=== PATIENT | male | born 1975 | race Caucasian/White ===

== ENCOUNTER 2021-11-09 18:31 | Emergency (ER) | payer MEDICAID, SELFPAY ==
[2021-11-09 18:42] VITALS: BP 149/106; PULSE 69; RESP 16; TEMP 36.9; O2SAT 98
--- NOTE | 2021-11-09 18:58 | XRR_ITS ---
PROCEDURE INFORMATION: Exam: XR Chest Exam date and time: 11/09/2021 9:13 PM Age: 46 years old Clinical indication: Pain; Angina pectoris; Additional info: Chest pain TECHNIQUE: Imaging protocol: Radiologic exam of the chest. Views: 1 view. COMPARISON: No relevant prior studies available. FINDINGS: Lungs: No consolidation. Pleural spaces: Unremarkable. No pleural effusion. No pneumothorax. Heart/Mediastinum: No cardiomegaly. Bones/joints: No acute findings. XR/XR chest 1V portable [id number] IMPRESSION: No acute findings.
[2021-11-09 21:37] LABS: Basophils # 0.1 10^3/uL (0.0-0.1); Eosinophils # 0.1 10^3/uL (0.0-0.8); Eosinophils % 0.8 %; Hematocrit 43.3 % (42.0-52.0); Hemoglobin 14.9 g/dL (11.7-16.6); Lymphocytes # 2.5 10^3/uL (0.8-4.8); Lymphocytes % 28.3 %; Mean Corpuscular HGB Conc 34.4 g/dL (30.0-36.0); Mean Corpuscular Hemoglobin 30.8 pg (28.0-34.0); Mean Corpuscular Volume 89.5 fl (80-94); Mean Platelet Volume 9.7 fL (7.4-10.4); Monocytes # 0.7 10^3/uL (0.2-0.9); Monocytes % 8.4 %; Neutrophils # 5.31 10^3/uL (1.8-7.7); Neutrophils % 61.2 %; Nucleated Red Blood Cells % 0 %; Platelet Count 296 10^3/cmm (130-400); Red Blood Count 4.84 10^6/uL (4.1-5.3); Red Cell Distribution Width 12.5 % (12.1-15.1); White Blood Count 8.7 10^3/uL (4.0-10.0)
--- NOTE | 2021-11-09 21:43 | ED_ITS ---
HPI - General Adult General: Chief complaint: Chest Pain Stated complaint: High Blood Pressure Time Seen by Provider: 11/09/21 21:04 History of Present Illness: Patient is a 46-year-old male with no significant pressure presents emergency room with concerns for elevated blood pressure. Patient tells me that he was recently seen in the [facility] clinic 2 weeks ago and was told to keep a log for blood pressure at home. Patient noted that his blood pressure today was 140/190 was told to come to the emergency room. Patient reports intermittent chest pressure that is worse with inspiration radiating down the left arm. Patient denies any pressure-like chest pain, nausea/vomiting, diaphoresis, abdominal complaints, fever or chills. Patient reports that he also has intermittent head pressure. Patient reports that his blood pressure has fluctuated between 130s to 140s systolic over the last 2 weeks. Onset: unknown Duration:ongoing Location:home Severity:modeate Associated symptoms: Deny chest pain, dyspnea, nausea, rash, palpitations or vomiting Review of Systems Const: Denies: fever(s) or chills Eyes: Denies: change in vision ENMT: Denies: mouth pain Card: Reports: other (+chest pressure with inspiration); Denies: chest pain or palpitations Resp: Denies: dyspnea or non-productive cough GI: Denies: abdominal pain, nausea, vomiting or diarrhea : Denies: dysuria Musc: Denies: extremity pain Skin/Breast: Denies: rash or new lesions Neuro: Reports: other (+intermittent head pressure); Denies: weakness in extremities Psych: Reports: other (Normal mood) Sanjay/Lymph: Denies: easy bruising [facility] ED PFSH: Medical History (Updated 11/17/21 @ 00:01 by ) No pertinent past medical history Social History (Updated 11/09/21 @ 22:27 by Jesse Mccormick MD) Smoking and tobacco status: never smoked Alcohol intake: never Substance/Drug Use: never Physical Exam Const: COMMON NORMALS: alert HENMT: COMMON NORMALS: atraumatic HEAD & SCALP: atraumatic MOUTH: moist mucous membranes not abnormal Eye: COMMON NORMALS: EOMs intact bilaterally and conjunctivae normal CONJUNCTIVA: Yes conjunctivae normal Neck/C-Spine: COMMON NORMALS: full ROM and supple Resp: COMMON NORMALS: normal respiratory effort and clear to auscultation bilaterally AUSCULTATION: clear to auscultation bilaterally Cardio: COMMON NORMALS: regular rate RATE: regular rate OTHER: 2+ radial pulses GI: COMMON NORMALS: Soft to palpation and non-tender PALPATION: Yes Soft to palpation Extremity: COMMON NORMALS: full ROM Neuro: SENSORIUM/ORIENTATION: Yes alert MOTOR EXAM: No Abnormal motor strength present and Other motor observations present (no focal motor deficits) Psych: COMMON NORMALS: speech normal SPEECH: Yes normal speech MOOD & AFFECT: Yes euthymic mood Course Vital Signs: Vital signs: Vital Signs Temperature 98.4 F 11/09/21 22:57 Pulse Rate 62 11/09/21 22:57 Respiratory Rate 16 11/09/21 22:57 Blood Pressure 157/87 11/09/21 22:57 Pulse Oximetry 98 11/09/21 22:57 [facility] - General Adult Medical Decision Making Patient is a 46-year-old male with no significant past medical history presents the emergency room for concerns of elevated blood pressure. Patient reports mild headache and chest pressure with inspiration. On physical exam, patient is hemodynamically stable with no focal lower extremity edema or Homans' sign. Patient has 2+ radial pulses. EKG troponin within normal limit. Patient receiv ed 5mg of amlodipine with improvement in blood pressure. EKG is nonischemic. Creatinine within normal limit. D-dimer within normal limit. Doubt ACS/PE or other emergent causes of chest pain. No suspicion for aortic dissection given no widened mediastinum, 2+ upper extremity pulses, or tearing p ain. No suspicion for PE given no pleuritic chest pain, recent immobilization or surgery hemoptysis, or other VTE risk factors. EKG is non-ischemic. XR normal. Disposition: Discharge. Patient counseled regarding diagnostic impression, treatment plan. Patient given ED strict return precautions to return for continuation, worsening, or development of new symptoms. Instructed to f/u w/ PCP regarding symptoms today. Patient verbalized understanding. Lab Data : 11/09/21 21:33 11/09/21 21:33 Radiology Impressions Chest X-Ray 11/09/21 18:58 IMPRESSION: No acute findings. Laboratory Results WBC 8.7 10^3/uL (4.0-10.0) 11/09/21 21:33 RBC 4.84 10^6/uL (4.1-5.3) 11/09/21 21:33 Hgb 14.9 g/dL (11.7-16.6) 11/09/21 21:33 Hct 43.3 % (42.0-52.0) 11/09/21 21: MCV 89.5 fl (80-94) 11/09/21 21:33 MCH 30.8 pg (28.0-34.0) 11/09/21 21: MCHC 34.4 g/dL (30.0-36.0) 11/09/21 21:33 RDW 12.5 % (12.1-15.1) 11/09/21 21:33 Plt Count 296 10^3/cmm (130-400) 11/09/21 21: MPV 9.7 fL (7.4-10.4) 11/09/21 21:33 Neut % (Auto) 61.2 % 11/09/21 21: Lymph % (Auto) 28.3 % 11/09/21 21: Coles % (Auto) 8.4 % 11/09/21 21: Eos % (Auto) 0.8 % 11/09/21 21: Baso % (Auto) 1.0 % 11/09/21 21: Neut # (Auto) 5.31 10^3/uL (1.8-7.7) 11/09/21 21: Lymph # (Auto) 2.5 10^3/uL (0.8-4.8) 11/09/21 21: Coles # (Auto) 0.7 10^3/uL (0.2-0.9) 11/09/21 21: Eos # (Auto) 0.1 10^3/uL (0.0-0.8) 11/09/21 21: Baso # (Auto) 0.1 10^3/uL (0.0-0.1) 11/09/21 21: Nucleated RBC % (auto) 0 % 11/09/21 21: Nucleated RBCs # 0.0 /100WBC 11/09/21 21: D-Dimer 0.41 ug/mIFEU (0-0.59) 11/09/21 22:00 Sodium 140 mmol/L (136-145) 11/09/21 21: Potassium 4.2 mmol/L (3.5-5.1) 11/09/21 21:33 Chloride 103 mmol/L (98-107) 11/09/21 21:33 Carbon Dioxide 26 mmol/L (22-29) 11/09/21 21:33 Anion Gap 15.2 (5-19) 11/09/21 21:33 BUN 11 mg/dL (6-20) 11/09/21 21:33 Creatinine 0.8 mg/dL (0.7-1.2) 11/09/21 21:33 GFR Calculation 103.6 mL/min (90-130) 11/09/21 21:33 Glucose 90 mg/dL (65-115) 11/09/21 21:33 Calculated Osmolality 289 mOsm/kg (285-295) 11/09/21 21:33 Calcium 9.4 mg/dL (8.5-10.5) 11/09/21 21:33 Total Bilirubin 0.7 mg/dL (0.15-1.2) 11/09/21 21:33 AST 22 U/L (0-40) 11/09/21 21:33 ALT 28 U/L (0-41) 11/09/21 21:33 Alkaline Phosphatase 59 IU/L (40-130) 11/09/21 21:33 Troponin T Baseline 6 ng/L (0-15) 11/09/21 21:33 Total Protein 7.6 g/dL (6.6-8.7) 11/09/21 21:33 Albumin 4.7 g/dL (3.5-5.2) 11/09/21 21:33 Globulin 2.9 g/dL (1.3-4.6) 11/09/21 21:33 Imaging Data Other Imaging: Radiologist's impression: Launch?Image [email or web address] [address] [place] [address] XRay Report Signed Patient: Alfred Hayward Unit #: [id number] : 1975 Age/Sex: 46 / M ADM Date: 11/09/21 Loc: ER Room/Bed: Attending Dr: Ordering Provider/Ordering MD: Aurora Plummer Date of Service: 11/09/21 Procedure(s): XR chest 1V portable [id number] Accession Number(s): [id number] Report Number: [id number] PROCEDURE INFORMATION: Exam: XR Chest Exam date and time: 11/09/2021 9:13 PM Age: 46 years old Clinical indication: Pain; Angina pectoris; Additional info: Chest pain TECHNIQUE: Imaging protocol: Radiologic exam of the chest. Views: 1 view. COMPARISON: No relevant prior studies available. FINDINGS: Lungs: No consolidation. Pleural spaces: Unremarkable. No pleural effusion. No pneumothorax. Heart/Mediastinum: No cardiomegaly. Bones/joints: No acute findings.? XR/XR chest 1V portable [id number] IMPRESSION: No acute findings. ? Dictated By: Primitivo Quinteros MD Signed By: Primitivo Quinteros MD Signed Date/Time: 11/09/212147 DD/ 12 Discharge Plan Discharge Patient Disposition: Home Clinical Impression: Hypertension, Chest pain Condition: Stable Prescriptions: New amlodipine 5 mg tablet 5 mg PO DAILY 30 Days Qty: 30 0RF Discharge Orders: Discharge ED (Routine); Ordered 11/09/21 Ordered By: Jesse Mccormick Discharge Diet: Advance as tolerated Discharge Activity: Increase activity as tolerated Patient Instructions: Chest Pain (ED), Hypertension (ED) Activity Restrictions/Additional Instructions: Come back to the emergency room if your chest pain worsens, have any fever or chills, worsening shortness of breath, worsening exertional lightheadedness, or any new or concerning complaints. You need to follow-up with your primary care provider for further adjustment of your blood pressure. Your blood pressure puts you at risk for developing strokes and heart attack. Therefore it is very important for you to follow-up with this number to see if the numbers improve gradually. Because blood pressure adjustment is a gradual process, were not able to change it in 1 visit. Therefore please log your blood pressure and follow-up with your primary care provider in the next 72 hours for further adjustment of your blood pressures. Coding Level of Care Code ED Quality Controller for Chirag Fwd Exam Comprehensive
[2021-11-09 22:03] LABS: Alanine Aminotransferase 28 U/L (0-41); Albumin Level 4.7 g/dL (3.5-5.2); Alkaline Phosphatase 59 IU/L (40-130); Anion Gap 15.2 (5-19); Aspartate Amino Transferase 22 U/L (0-40); Blood Urea Nitrogen 11 mg/dL (6-20); Calcium 9.4 mg/dL (8.5-10.5); Carbon Dioxide 26 mmol/L (22-29); Chloride 103 mmol/L (98-107); Globulin 2.9 g/dL (1.3-4.6); Glomerular Filtration Rate 103.6 mL/min (90-130); Glucose 90 mg/dL (65-115); Osmolality Calculated 289 mOsm/kg (285-295); Potassium 4.2 mmol/L (3.5-5.1); Sodium 140 mmol/L (136-145); Total Bilirubin 0.7 mg/dL (0.15-1.2); Total Protein 7.6 g/dL (6.6-8.7)
[2021-11-09 22:04] LABS: Troponin(5th) Baseline 6 ng/L (0-15)
[2021-11-09 22:11] VITALS: BP 137/81
[2021-11-09 22:21] VITALS: PULSE 59; O2SAT 96
[2021-11-09 22:24] LABS: D Dimer 0.41 ug/mIFEU (0-0.59)
[2021-11-09] MEDS: amlodipine 5 mg Tablet PO (22:24)
[2021-11-09 22:56] VITALS: BP 157/87; PULSE 62; RESP 16; TEMP 36.9; O2SAT 98
[2021-11-09 22:57] VITALS: BP 157/87; PULSE 62; RESP 16; TEMP 36.9; O2SAT 98
== END 2021-11-09 23:09 | disposition home or self-care (01) ==
PROVIDERS: Physician Assistant; Emergency Provider Emergency Medicine
DX: I10 Essential (primary) hypertension (principal); R07.9 Chest pain, unspecified
CPT/HCPCS: 71045; 80053; 84484; 85025; 85378; 99285

== ENCOUNTER → 2021-11-28 10:55 | Outpatient (BNVA) | payer OTHER, SELFPAY | PROVIDERS: Visit Provider Surgery | DX: Z12.11 Encounter for screening for malignant neoplasm of colon (principal) | CPT/HCPCS: 99203 ==

== ENCOUNTER → 2021-12-18 09:10 | Outpatient (BNVA) | payer OTHER, SELFPAY | PROVIDERS: PCP Family Medicine; Visit Provider Internal Medicine Cardiovascular Disease | DX: R07.9 Chest pain, unspecified (principal); I10 Essential (primary) hypertension; F17.220 Nicotine dependence, chewing tobacco, uncomplicated | CPT/HCPCS: 99203 ==

== ENCOUNTER 2022-01-19 12:11 | Outpatient (CLI) | payer OTHER, SELFPAY ==
[2022-01-19 12:34] VITALS: BMI 28.3
--- NOTE | 2022-01-19 12:36 | ECG_ITS ---
[facility] Test Date: 2022-01-19 Pat Name: Alfred Hayward Department: Room: Gender: Male Procurement Assistant: : 1975 Requested By: Damaris Hess Order Number: [id number] Estrella MD: Damaris Hess M.D. Interpretive Statements NAME OF STUDY: TREADMILL STRESS TEST INDICATION: Chest Pain Baseline blood pressure of 113/83 mm Hg, heart rate of 82 beats per minute and oxygen saturation 98%. EKG showed normal sinus rhythm, normal axis with nonspecific T wave changes. The patient exercised for 11 minutes 59 seconds on a standard Ty protocol. Patient attained a maximum heart rate of 177 beats per minute(102% of the maximum predicted heart rate) with a blood pressure at the peak exercise of 145/83 mm Hg and oxygen saturation 95%. The EKG at the peak exercise revealed sinus tachycardia with no significant ST-T wave changes. Patient did not have any chest pain or any significant arrhythmis with the exercise. The study was terminated due to maximal effort. During the recovery phase, there were no new changes. Blood pressure at the end of the recovery phase was 97/69 mm Hg with a heart rate of 104 beats per minute and oxygen saturation of 96%. CONCLUSION: 1. Normal EKG response to treadmill exercise. 2. No exercise-induced chest pain or cardiac arrhythmia. 3. Excellent exercise tolerance, attained a maximum of 13.5 METs. 4. Baseline normal blood pressure with normal response to exercise. 5. Pang treadmill score of 12 suggestive of low risk. Electronically Signed On 01-20-2022 12:31:21 CDT by Damaris Hess M.D. [id number]
[2022-01-19 13:05] VITALS: BP 97/69; PULSE 105
== END 2022-01-19 12:12 | disposition home or self-care (01) ==
LOC: CDL 12:17
PROVIDERS: PCP Family Medicine; Visit Provider Internal Medicine Cardiovascular Disease
DX: R07.9 Chest pain, unspecified (principal)
CPT/HCPCS: 93017

== ENCOUNTER 2022-02-13 07:50 | Day surgery (SDC) | payer OTHER, SELFPAY ==
[2022-02-11 08:45] VITALS: BMI 27.5
[2022-02-13 08:10] VITALS: BP 135/80; PULSE 71; RESP 18; TEMP 36.2; O2SAT 97
[2022-02-13] MEDS: sodium chloride 0.9% 1,000 ML 30 ML IV ×2 (08:15→12:35)
--- NOTE | 2022-02-13 09:26 | P.ANESASSM_ITS ---
Pre-Anesthetic Assessment Height/Weight: Height 1.73 m Weight 82.1 kg Temp Pulse Resp BP Pulse Ox O2 Del Method 97.2 F L 71 18 135/80 97 02/13/22 08:10 02/13/22 08:10 02/13/22 08:10 02/13/22 08:10 02/13/22 08:10 02/13/22 08:10 Preop Diagnosis: screening Operation Date: 02/13/22 10:00 Proposed Procedures p Colonoscopy 90921,Z12.11(Not Applicable) - Efra Cobian DO Familial anesthetic complications: none Last intake: Intake Last Liquid Date 02/12/22 Last Liquid Time 21:00 Last Solid Date 02/11/22 Last Solid Time 18:00 Chewing tobacco at 0630 patient states he swallows chew. Will proceed once 6 hours of NPO time has passed (1230) Social Tobacco (smokeless) Exam alert, No oriented x 3 and clear to auscultation bilaterally Airway Submandibular: within normal limits Cervical ROM: within normal limits Mallampati: Class I Dentition: chipped Comments: Comments: multiple chipped teeth. History/ROS No significant history except as noted Pulmonary Sleep Apnea (sleep study ordered awaiting.) and None reported CV/HEM Stable Angina (stress test on record) and Hypertension None reported Hepatic None reported GI Gastroesophageal Reflux Disease (rare.) Metabolic None reported Musc/skel None reported Neuropsych None reported Anesthetic Plan ASA status: 3 Anesthesia: MAC Other: patient educated on the importance of not chewing smokeless tobacco prior to procedures. Patient procedure order will be changed to reflect a 6 hour NPO status (1230). Medications/Allergies Home Medications Medication Instructions Recorded Confirmed Last Taken Type lisinopril 20 mg tablet 20 mg PO DAILY 11/28/21 02/13/22 02/11/22 History nitroglycerin 0.4 mg sublingual 0.4 mg sublingual Q5M PRN Chest 02/11/22 02/13/22 Unknown History tablet Pain Allergies Allergy/AdvReac Type Severity Reaction Status Date / Time No Known Allergies Allergy Verified 02/13/22 08:09 [facility] Anesthesia Medical History Hypertension No pertinent past medical history Tobacco chew use Surgical History Hx of appendectomy Social History Smoking and tobacco status: never smoked Alcohol intake: never Data Anesthesia Cardiac Studies: No Data to Display
--- NOTE | 2022-02-13 10:22 | PM.HP ---
Providers/Chief Complaint Primary Care Provider: Joleen Kwan MD Chief Complaint: encounter for screening for malignant History of Present Illness Alfred Hayward is a 46 year old male here for his first screening colonoscopy Medications/Allergies Home Medications Medication Instructions Recorded Confirmed Last Taken Type lisinopril 20 mg tablet 20 mg PO DAILY 11/28/21 02/13/22 02/11/22 History nitroglycerin 0.4 mg sublingual 0.4 mg sublingual Q5M PRN Chest 02/11/22 02/13/22 Unknown History tablet Pain Allergies Allergy/AdvReac Type Severity Reaction Status Date / Time No Known Allergies Allergy Verified 02/13/22 08:09 PFSH Acute PFSH: Medical History Hypertension No pertinent past medical history Tobacco chew use Surgical History Hx of appendectomy Social History Smoking and tobacco status: never smoked Alcohol intake: never Vitals/I&O/Wt Last Vital Signs Temp 97.2 F L 02/13/22 08:10 Pulse 71 02/13/22 08:10 Resp 18 02/13/22 08:10 BP 135/80 02/13/22 08:10 Pulse Ox 97 02/13/22 08:10 O2 Del Method 02/13/22 08:10 A&P Assessment and plan (1) Encounter for screening colonoscopy: Plan Colonoscopy Attestations Medical Necessity Statement*: Home Coding Level of Care Code Acute Continuous Pickling Line Pickler for Chg Fwd Diagnoses Encounter for screening colonoscopy Z12.11
[2022-02-13 13:02] VITALS: BP 115/71; PULSE 84; RESP 18; TEMP 36.1; O2SAT 97
[2022-02-13 13:20] VITALS: BP 122/76; PULSE 52; RESP 18; O2SAT 97
--- NOTE | 2022-02-13 14:01 | ANE.PACU2 ---
Inpatient post-anesthesia follow up: Airway intact: Yes Vital signs: Temperature 97.0 F Pulse Rate 52 Respiratory Rate 18 Blood Pressure 122/76 Pulse Oximetry 97 Oxygen Delivery Me thod Room Air Oxygen Flow Rate Fraction of Inspir ed Oxygen Hydration adequate: Yes Nausea and vomiting: No Pain level: 1 Mental status: Baseline
== END 2022-02-13 13:29 | disposition home or self-care (01) ==
PROVIDERS: PCP Family Medicine; Visit Provider Surgery
PROC: 0DJD8ZZ Inspection of Lower Intestinal Tract, Via Natural or Artificial Opening Endoscopic (ICD-10-PCS; CPT 45378; principal; 2022-02-13 10:00)
DX: Z12.11 Encounter for screening for malignant neoplasm of colon (principal); I10 Essential (primary) hypertension; K63.5 Polyp of colon; F17.290 Nicotine dependence, other tobacco product, uncomplicated; K21.9 Gastro-esophageal reflux disease without esophagitis
CPT/HCPCS: 45385; 88305; J2704; J7030

== ENCOUNTER 2022-03-11 20:00 | Outpatient (CLI) | payer OTHER, SELFPAY | END 2022-03-11 20:01 | disposition home or self-care (01) | LOC: SLEEP 03-12 07:12 | PROVIDERS: PCP Family Medicine; Visit Provider Family Medicine | DX: R06.83 Snoring (principal); R53.83 Other fatigue; G47.33 Obstructive sleep apnea (adult) (pediatric) | CPT/HCPCS: 95811 ==

== ENCOUNTER → 2022-03-17 16:41 | Outpatient (BNVA) | payer OTHER, SELFPAY | PROVIDERS: PCP Family Medicine; Visit Provider Surgery | DX: Z09 Encounter for follow-up examination after completed treatment for conditions other than malignant neoplasm (principal); K63.5 Polyp of colon | CPT/HCPCS: 99212 ==